=== PATIENT | female | born 1985 | race Caucasian/White ===

== ENCOUNTER 2024-01-05 06:08 | Day surgery (SDC) | payer OTHER ==
[~2024-01-05] VITALS: Ht 160 cm; Wt 70.3 kg
[~2024-01-05 06:08] MED LIST: CEFAZOLIN SOD 2 GM in D5W 50 ML IV ONE
[2024-01-05] MEDS ORDERED: MIDAZOLAM HCL 5 MG/ML VIAL (VERSED) IV ONE (07:36)
[2024-01-05] MEDS ORDERED: NS 1000 ML IV.SOLN IV ONE (07:36)
[2024-01-05] MEDS ORDERED: SUGAMMADEX SODIUM 200 MG/2 ML VIAL IV ONE (07:36)
[2024-01-05] MEDS ORDERED: ROCURONIUM BROMIDE 10 MG/ML (ZEMURON) ONE (07:36)
[2024-01-05] MEDS ORDERED: NS IRRIG SOLN 1000 ML IR ONE (07:36)
[2024-01-05] MEDS ORDERED: METOCLOPRAMIDE HCL 10 MG/2 ML VIAL ONE (07:36)
[2024-01-05] MEDS ORDERED: fentaNYL CITRATE/PF 100 MCG/2 ML AMP ONE (07:36)
[2024-01-05] MEDS ORDERED: WATER FOR IRRIGATION,STERILE 1,000 ML IRRIG.SOLN IR ONE (07:36)
[2024-01-05] MEDS ORDERED: SEVOFLURANE 15 MIN GAS INH ONE (07:36)
[2024-01-05] MEDS ORDERED: ONDANSETRON HCL 4 MG/2 ML VIAL ONE (07:36)
[2024-01-05] MEDS ORDERED: DEXAMETHASONE SOD PHOSPHATE 4 MG/ML VIAL ONE (07:36)
[2024-01-05] MEDS ORDERED: BUPIVACAINE /PF 0.5% 30 ML VIAL ONE (07:36)
[2024-01-05] MEDS ORDERED: PROPOFOL 200MG/ 20ML VIAL (DIPRIVAN) IV ONE (07:36)
[2024-01-05 07:37] LABS: SERUM HCG (QUALITATIVE) NEGATIVE (NEGATIVE)
[2024-01-05] MEDS ORDERED: ACETAMINOPHEN I.V. 1000 MG 100 ML IV ONE (08:27)
[2024-01-05] MEDS ORDERED: HYDROmorphone 1 MG/ML INJ. CARTRIDGE IVP PRN (08:30)
[2024-01-05] MEDS ORDERED: LR 1,000 ML IV SCH (08:30)
[2024-01-05] MEDS ORDERED: ONDANSETRON HCL 4 MG/2 ML VIAL IVP PRN ×2 (08:30→09:15)
[2024-01-05] MEDS ORDERED: OXYCODONE/ACETAMINOPHEN 5-325 TABLET PO PRN ×2 (09:15)
[2024-01-05] MEDS ORDERED: HYDROcodone/ACETAMIN 5-325 MG TAB (NORCO/ VICODIN) PO PRN (09:15)
[2024-01-05] MEDS ORDERED: MORPHINE 2 MG/ML INJ. SYRINGE ONE (09:32)
[2024-01-05] MEDS: MORPHINE 4 MG INJ. 4 MG/ML VIAL IVP PRN (09:34)
[2024-01-05] MEDS: MORPHINE 2 MG/ML INJ. SYRINGE ONE (10:05)
[2024-01-05] MEDS ORDERED: MORPHINE SULFATE 10 MG/ML VIAL ONE (11:00)
[2024-01-05] MEDS: SIMETHICONE 80 MG TAB.CHEW PO SCH (12:30)
[2024-01-05] MEDS ORDERED: SIMETHICONE 80 MG TAB.CHEW ONE (12:32)
[2024-01-05] MEDS: ONDANSETRON HCL 4 MG/2 ML VIAL ONE (13:04)
[2024-01-05 13:56] VITALS: BP_SYST 132; PULSE 84; RESP 16; TEMP 97.7; O2SAT 88
== END 2024-01-05 13:10 | disposition home or self-care (01) ==
LOC: SMU 06:08 → SDS 06:08
PROVIDERS: ATTEND Specialist
DX: D27.1 Benign neoplasm of left ovary (principal); N92.6 Irregular menstruation, unspecified; E78.5 Hyperlipidemia, unspecified; Z88.4 Allergy status to anesthetic agent; Z98.890 Other specified postprocedural states; Z79.899 Other long term (current) drug therapy
CPT/HCPCS: 87081; 58662; 84703; 36415; 88307; J0690; J7060; J3490 ×2; J1100; J2765; J2250; J2405; J2704; J3010; J2270 ×2; J7030; C1782; C1727; J0131